=== PATIENT | male | born 1995 | race Caucasian/White ===

== ENCOUNTER 2017-04-02 01:24 | Emergency (ER) | payer BC, OTHER ==
[~2017-04-02] VITALS: Ht 188 cm; Wt 79.9 kg
[~2017-04-02 01:24] MED LIST: ADAP0.1G10 TOP; ALBUAER19 INH; AMPH20TA2 PO; AMPH30CA3 PO; DOXY50CA PO
[2017-04-02 01:26] VITALS: TEMP 36.7; Ht 188 cm; Wt 79.9 kg
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
[2017-04-02 04:12] VITALS: BP 114/75; PULSE 81; O2SAT 95
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
== END 2017-04-02 04:07 | disposition home or self-care (01) ==
LOC: C.EDB 01:25
DX: S09.90XA Unspecified injury of head, initial encounter (principal); Y04.2XXA Assault by strike against or bumped into by another person, initial encounter